=== PATIENT | male | born 1980 | race Caucasian/White ===

== ENCOUNTER 2023-03-07 14:53 | Emergency (ER) | payer OTHER ==
[2023-03-07 15:10] VITALS: PULSE 92; O2SAT 98
[2023-03-07] MEDS ORDERED: Zofran 4 MG/2 ML VIAL IV ONE (15:37)
[2023-03-07] MEDS ORDERED: SUBLIMAZE 100 MCG/2 ML IV ONE (15:38)
--- NOTE | 2023-03-07 15:44 | ERPHSYRPT ---
- History of Present Illness Source: patient Exam Limitations: no limitations Patient Subjective Stated Complaint: Pt was on the third step of a 5 foot ladder yesterday and fell off injuring his back and the back of his head Triage Nursing Assessment: Pt was brought to the ER by his girlfriend, hypertensive, rates pain in back as 03/03, pt has chronic back pain from an old injury and then hurt it again yesterday, no bruising or markings noted on back or head, pulses normal, skin n/w/d, doesn't appear to be in any distress Physician History: 42 yo WM fell backwards off a ladder yesterday hitting his head. Pt fell off of rung 3. He denies LOC but was dazed and has a headache/nausea/blurry vision. Pt also has mild C-spine pain and moderate lumbar pain. Occurred: yesterday Reason for Fall: lost balance Injuries/Pain Location: head, neck, back Loss of Consciousness: dazed Severity of Pain-Max: severe Severity of Pain-Current: moderate Modifying Factors: Improves With: movement Associated Symptoms (Fall): back pain Allergies/Adverse Reactions: No Known Drug Allergies Allergy (Verified 03/07/23 15:10) Home Medications: Allopurinol 100 mg [Zyloprim 100 mg] 100 mg PO DAILY 03/07/23 [History] Sertraline HCl [Zoloft] 200 mg PO DAILY 03/07/23 [History] Hx Tetanus, Diphtheria Vaccination/Date Given: No Hx Influenza Vaccination/Date Given: No Hx Pneumococcal Vaccination/Date Given: No Travel Risk - International Travel Have you traveled outside of the country in past 3 weeks: No - Coronavirus Screening Are you exhibiting any of the following symptoms?: No Close contact with a COVID-19 positive Pt in past 14-21 Days: No - Vaccine Status Have you recieved a Covid-19 vaccination: No - Review of Systems Constitutional: No Symptoms Eyes: No Symptoms Ears, Nose, & Throat: No Symptoms Respiratory: No Symptoms Cardiac: No Symptoms Abdominal/Gastrointestinal: No Symptoms Genitourinary Symptoms: No Symptoms Musculoskeletal: Back Pain, Neck Pain Skin: No Symptoms Neurological: No Symptoms, Headache Psychological: No Symptoms Endocrine: No Symptoms Hematologic/Lymphatic: No Symptoms Immunological/Allergic: No Symptoms - Past Medical History Pertinent Past Medical History: Yes Neurological History: No Pertinent History Cardiac History: No Pertinent History Respiratory History: No Pertinent History Endocrine Medical History: No Pertinent History Musculoskeletal History: No Pertinent History Other Medical History: gout - Past Surgical History Musculoskeletal: Orthopedic Surgery Other Surgical History: partial left knee replacement, left shoulder, right elbow - Social History Smoking Status: Never smoker Exposure to second hand smoke: No Drug Use: none Patient Lives Alone: Yes Significant Family History: no pertinent family hx - Nursing Vital Signs Nursing Vital Signs: Initial Vital Signs Temperature 96.2 F 03/07/23 14:58 Pulse Rate 92 H 03/07/23 14:58 Blood Pressure 160/95 03/07/23 14:58 O2 Sat by Pulse Oximetry 98 03/07/23 14:58 Pain Scale Pain Intensity 5 Hypertensive - [place] Coma Score Best Eye Response ([place]): (4) open spontaneously Best Verbal Response ([place]): (5) oriented Best Motor Response ([place]): (6) obeys commands [place] Total: 15 - Physical Exam General Appearance: no apparent distress Head Injury: tenderness (Occiput TTP) Eye Exam: PERRL/EOMI, eyes nml inspection ENT Exam: airway nml, No evidence of ENT injury, No clear fluid (ears), No clear fluid (nose) Neck Exam: supple, trachea midline, other (C-spine mildly TTP) Respiratory/Chest Exam: normal breath sounds, No chest tenderness, No respiratory distress Cardiovascular Exam: normal heart sounds, regular rate/rhythm, normal peripheral pulses, No murmur Gastrointestinal Exam: soft, normal bowel sounds, No tenderness Back Exam: vertebral tenderness (Mid-lower lumbar TTP), other (B posterior- superior iliac crests TTP) Extremity Exam: normal inspection, normal range of motion, capillary refill <3 sec, pelvis stable Peripheral Pulses: carotid (R): 2+, carotid (L): 2+ Neurologic Exam: alert, oriented x 3, cooperative, mechanical developer prover II-XII nml as tested, normal mood/affect, nml cerebellar function, nml station & gait, sensation nml Skin Exam: normal color, warm, dry SpO2 Interpretation: normal SpO2: 98 O2 Delivery: Room Air - Course Nursing assessment & vital signs reviewed: Yes - CT Exams Head CT Interpretation: Discussed w/radiologist (NAD) Cervical Spine CT Interpretation: Discussed w/radiologist (Spasm/nothing acute) Abdomen/Pelvis CT Interpretation: Discussed w/radiologist (Fecal stasis/otherwise neg) Ordered Tests: Active Orders 24 hr Category Date Time Status IV Insertion STAT Care 03/07/23 15:37 Completed ABDOMEN AND PELVIS W/0 CONTRAS [CT] Stat Exams 03/07/23 15:36 Completed CERVICAL SPINE WO CONTRAST [CT] Stat Exams 03/07/23 15:36 Completed HEAD WITHOUT CONTRAST [CT] Stat Exams 03/07/23 15:37 Completed Medication Summary Discontinued Medications Generic Name Dose Route Start Last Admin Trade Name Chris PRN Reason Stop Dose Admin Fentanyl Citrate 100 mcg 03/07/23 15:38 03/07/23 15:51 Fentanyl Citrate 100 Mcg/2 Ml* Vial IV 03/07/23 15:39 100 mcg STAT ONE Administration Fentanyl Citrate Confirm 03/07/23 15:49 Fentanyl Citrate 100 Mcg/2 Ml* Vial Administered 03/07/23 15:50 Dose 100 mcg .ROUTE .STK-MED ONE Hydromorphone HCl 1 mg 03/07/23 17:07 03/07/23 17:20 Hydromorphone 1 Mg/1ml Inj IV 03/07/23 17:08 1 mg STAT ONE Administration Hydromorphone HCl Confirm 03/07/23 17:19 Hydromorphone 1 Mg/1ml Inj Administered 03/07/23 17:20 Dose 1 mg .ROUTE .STK-MED ONE Ondansetron HCl 4 mg 03/07/23 15:37 03/07/23 15:51 Ondansetron Hcl 4 Mg/2 Ml Vial IV 03/07/23 15:38 4 mg STAT ONE Administration Ondansetron HCl Confirm 03/07/23 15:49 Ondansetron Hcl 4 Mg/2 Ml Vial Administered 03/07/23 15:50 Dose 4 mg .ROUTE .STK-MED ONE - Progress Progress: improved Progress Note: 03/07/23 18:26 Nursing note and vital signs reviewed No food or housing insecurities noted Additional history per SO All CT results reviewed and shared w pt/SO 100mcg IV Fentanyl/4mg IV Zofran w temporary relief of pain 1mg IV dilaudid before discharge after observation Counseled pt/family regarding: lab results, diagnosis, need for follow-up, rad results Medical Desision Making - Independent Historian Additional History obtained from: Relative/friend - Diagnostic Testing Radiological Interpretation: Reviewed by me - Risk of complications The pt has a mod risk of morbidity or mortality based on: Need for prescription drug management - Departure Departure Disposition: Home Clinical Impression: Minor closed head injury, Cervical strain, acute, Lumbar strain Condition: Stable Critical Care Time: No Referrals: [facility]OS[facility] [Primary Care Provider] - Follow up/PCP as directed Instructions: Low Back Pain (DC), Head Injury in Adults (DC), Cervical Muscle Strain (DC) Additional Instructions: Rest/Heat/Massage Pain meds as needed(Stool softener w pain meds) Norflex as needed Follow up with your family MD for continued pain Return to ER as needed Prescriptions: Hydrocodone/Acetaminophen [Hydrocodone-Acetamin 5-325 mg] 1 tab PO Q4HPRN PRN #7 tablet MDD 6 PRN Reason: Pain Orphenadrine Citrate 100 mg [Norflex 100 MG Tablet] 100 mg PO BID PRN #10 tab PRN Reason: Muscle Spasms
[2023-03-07] MEDS ORDERED: Zofran 4 MG/2 ML VIAL ONE (15:49)
[2023-03-07] MEDS ORDERED: SUBLIMAZE 100 MCG/2 ML ONE (15:49)
--- NOTE | 2023-03-07 16:41 | XRAY ---
Indication: Status post fall/trauma. Multiple contiguous axial images obtained through the head without contrast. Comparison: None Normal appearing brain parenchyma, ventricles, and bony calvarium. Incidental 3 cm left maxillary sinus polyp/retention cyst. Mastoid air cells are clear. Impression: Normal CT head without contrast exam. Incidental left maxillary sinus polyp/retention cyst.
--- NOTE | 2023-03-07 16:43 | XRAY ---
Indication: Status post fall/trauma. Multiple contiguous axial images obtained through the cervical spine. Sagittal and coronal reformatted images obtained. Comparison: None Axial images negative for acute fracture, suspicious bony lesions, or spinal canal stenosis. Mild C5-C7 degenerative endplate spurring and mild C7-T1 degenerative facet arthropathy. Sagittal and coronal reformatted images demonstrates lordotic reversal centered at C6, positional versus paraspinal spasm. C5-C7 disc space narrowing. No acute compression fracture, subluxation, or jumped facet. Normal appearing cranial cervical junction. Visualized noncontrasted soft tissues and lung apices are unremarkable. Impression: 1. Cervical lordotic reversal, positional versus paraspinal spasm. 2. Negative acute fracture/subluxation. 3. C5-T1 degenerative changes.
--- NOTE | 2023-03-07 16:47 | XRAY ---
Indication: Status post fall/trauma. Multiple contiguous axial images obtained through the abdomen and pelvis without contrast. Comparison: None Lung bases demonstrate minimal dependent atelectasis. Heart not enlarged. Stomach is markedly distended with food/fluid. Noncontrasted stomach and bowel loops appear nonobstructed. Moderate diffuse scattered colonic fecal debris throughout. No free fluid/air. Partially contracted gallbladder without gallstones. Remaining liver, pancreas, spleen, adrenal glands, kidneys, ureters, bladder, and aorta are unremarkable for noncontrast exam. Osseous structures intact. Incidental minimal levoscoliosis centered at L3, mild degenerative changes both hips, 1.1 cm/1.7 cm right iliac bone cysts, and 7 mm left femur neck bone cyst. Impression: 1. Moderate diffuse fecal stasis and chronic bony findings. 2. Remaining CT abdomen/pelvis without contrast exam is negative.
[2023-03-07] MEDS ORDERED: Hydromorphone 1 mg/ml Injection IV ONE (17:07)
[2023-03-07] MEDS ORDERED: Hydromorphone 1 mg/ml Injection ONE (17:19)
[2023-03-07 17:24] VITALS: BP 157/105
== END 2023-03-07 17:30 | disposition home or self-care (01) ==
LOC: ED 14:53
DX: S09.90XA Unspecified injury of head, initial encounter (principal); S16.1XXA Strain of muscle, fascia and tendon at neck level, initial encounter; S39.012A Strain of muscle, fascia and tendon of lower back, initial encounter; W11.XXXA Fall on and from ladder, initial encounter; R51.9 Headache, unspecified; Z79.891 Long term (current) use of opiate analgesic; Z79.899 Other long term (current) drug therapy; Z28.310 Unvaccinated for COVID-19
CPT/HCPCS: 36000; 70450; 72125; 74176; 96374; 96375; 99284; J1170; J2405; J3010

== ENCOUNTER 2023-03-17 17:24 | Emergency (ER) | payer OTHER ==
[2023-03-17 17:40] VITALS: BP 148/107; PULSE 88; O2SAT 98
[2023-03-17] MEDS ORDERED: TORAdol 30 mg Injection IM ONE (17:59)
[2023-03-17] MEDS ORDERED: NEURONTIN PO ONE (18:01)
[2023-03-17] MEDS ORDERED: VISTARIL 100MG/2ML IM STA (18:02)
[2023-03-17] MEDS ORDERED: TORAdol 30 mg Injection ONE (18:05)
[2023-03-17] MEDS ORDERED: VISTARIL 100MG/2ML IM ONE (18:05)
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
== END 2023-03-17 18:25 | disposition home or self-care (01) ==
LOC: ED 17:24
DX: M75.81 Other shoulder lesions, right shoulder (principal); M50.10 Cervical disc disorder with radiculopathy, unspecified cervical region; M79.601 Pain in right arm; Z79.899 Other long term (current) drug therapy; Z28.310 Unvaccinated for COVID-19
CPT/HCPCS: 96372; 99283; J1885; J3410; A9270-GY

== ENCOUNTER 2023-07-15 09:57 | Emergency (ER) | payer OTHER ==
--- NOTE | 2023-07-15 10:24 | ERPHSYRPT ---
- History of Present Illness Time Seen by Provider: 07/15/23 10:10 Source: patient Exam Limitations: no limitations Physician History: Patient had carpel and cubital tunnel release on 07/10. He has concerns about his wounds possibly being infected. No fevers, chills or drainage from the wounds. Right ear complaints of bleeding and hearing voices for the past several months. Timing/Duration: week(s) Location: extremities (RUE) Possible Causes: other (recent surgery) Associated Symptoms: denies symptoms Allergies/Adverse Reactions: No Known Drug Allergies Allergy (Verified 07/15/23 09:59) Home Medications: Allopurinol 100 mg [Zyloprim 100 mg] 100 mg PO DAILY 03/07/23 [History] Gabapentin [Neurontin ] 300 mg PO TID 07/15/23 [History] Hydrocodone/Acetaminophen [Hydrocodone-Acetamin 5-325 mg] 1 tab PO TID PRN 07/15/23 [History] Hx Tetanus, Diphtheria Vaccination/Date Given: No Hx Influenza Vaccination/Date Given: No Hx Pneumococcal Vaccination/Date Given: No Travel Risk - Vaccine Status Have you recieved a Covid-19 vaccination: No - Review of Systems All Other Systems: Reviewed and Negative (Per HPI) - Past Medical History Pertinent Past Medical History: Yes Neurological History: No Pertinent History Cardiac History: No Pertinent History Respiratory History: No Pertinent History Endocrine Medical History: No Pertinent History Musculoskeletal History: No Pertinent History Other Medical History: gout,CHRONIC RIGHT ARM PAIN - Past Surgical History Past Surgical History: Yes Musculoskeletal: Orthopedic Surgery Other Surgical History: partial left knee replacement, left shoulder, right elbow - Social History Smoking Status: Never smoker Exposure to second hand smoke: No Drug Use: none Patient Lives Alone: Yes Significant Family History: no pertinent family hx - Physical Exam General Appearance: no apparent distress Ears, Nose, Throat Exam: normal ENT inspection, TMs normal, dry mucous membranes, other (right external canal with small abrasion with dried blood) Skin Exam: other (incisions at right wrist and elbow show no signs of erythema, drainage or warmth) - Progress Progress Note: No signs of infected post surgical wounds. Continue to dress wounds as prescribed. Right external ear canal trauma likely from Q tips. TM wnl. Advised to d/c use of Q tips. No evidence of otitis externa. Auditory hallucinations, persecutory in nature. Patient refuses telepsych consult at this time. After discussing telepsych evaluation patient left AMA. Medical Desision Making - Diagnostic Testing Diagnostic test were ordered, analyzed, and reviewed by me: No - Risk of complications Low Risk: Low risk of morbidity from additional dx testing or treatment - Departure Departure Disposition: AMA Clinical Impression: Visit for wound check, Trauma of ear canal, Auditory hallucinations Condition: Good Critical Care Time: No Referrals: [facility]OS[facility] [Primary Care Provider] - Follow up/PCP as directed Instructions: Wound Care (DC)
[2023-07-15 10:29] VITALS: BP 125/84; PULSE 78; RESP 17; O2SAT 98
== END 2023-07-15 10:22 | disposition left against medical advice (07) ==
LOC: ED 09:57
DX: Z48.01 Encounter for change or removal of surgical wound dressing (principal); S00.411A Abrasion of right ear, initial encounter; R44.0 Auditory hallucinations; Z79.891 Long term (current) use of opiate analgesic; Z79.899 Other long term (current) drug therapy; Z28.310 Unvaccinated for COVID-19
CPT/HCPCS: 99281

== ENCOUNTER 2024-05-21 14:47 | Day surgery (SDC) | payer OTHER ==
[2024-05-21] MEDS ORDERED: Decadron 4 MG INJ IV ONE (14:48)
[2024-05-21] MEDS ORDERED: Sodium Chloride 0.9(Preservative Free) 10 ML IJ ONE (14:48)
[2024-05-21] MEDS ORDERED: Lactated Ringers 1,000 ML IV ONE (15:45)
[2024-05-21] MEDS ORDERED: DIPRIVAN 200 MG/20 ML IV ONE (16:02)
[2024-05-21] MEDS ORDERED: MORPHINE SULFATE 2 MG INJ ONE ×2 (16:14→16:29)
--- NOTE | 2024-05-21 17:12 | XRAY ---
Indication: Right L3-L5 transforaminal JUSTIN. Intraoperative fluoroscopy provided for 31 seconds. 7 digital spot images submitted for interpretation demonstrates posterior needle tips projecting over the expected right L3 and L4 nerve roots. Small amount of contrast injected for needle tip placement. Correlate with intraoperative findings/report.
--- NOTE | 2024-05-21 17:14 | XRAY ---
31 seconds of fluoroscopy was used in surgery for a right L3-L5 transforaminal JUSTIN.
== END 2024-05-21 16:54 | disposition home or self-care (01) ==
LOC: SDC-PAIN 14:47
PROVIDERS: ATTEND Psychiatry & Neurology Pain Medicine
DX: M54.16 Radiculopathy, lumbar region (principal)
CPT/HCPCS: 64483; 64484; 72100; 77003; J1100; J2270; J2704; Q9966

== ENCOUNTER 2024-07-02 10:27 | Day surgery (SDC) | payer OTHER ==
[2024-07-02] MEDS ORDERED: Depo-Medrol 40 MG/ML IM ONE (10:28)
[2024-07-02] MEDS ORDERED: BUPIVACAINE 0.5% VIAL IJ ONE (10:28)
[2024-07-02] MEDS ORDERED: DIPRIVAN 200 MG/20 ML IV ONE (11:59)
[2024-07-02] MEDS ORDERED: Lactated Ringers 1,000 ML IV ONE (12:48)
--- NOTE | 2024-07-02 15:02 | XRAY ---
Indication: Right hip injection. Intraoperative fluoroscopy provided for 14 seconds. Single digital spot image submitted for interpretation demonstrates needle tip projecting lateral to right femur neck. Small amount of contrast injected for needle tip placement. Correlate with intraoperative findings/report.
--- NOTE | 2024-07-02 16:56 | XRAY ---
14 seconds of fluoroscopy was used in surgery for a right intra-articular hip injection.
== END 2024-07-02 12:30 | disposition home or self-care (01) ==
LOC: SDC-PAIN 10:27
PROVIDERS: ATTEND Psychiatry & Neurology Pain Medicine
DX: M16.11 Unilateral primary osteoarthritis, right hip (principal)
CPT/HCPCS: 20610; 73501; 77002; J2704; Q9966

== ENCOUNTER 2024-10-16 12:50 | Day surgery (SDC) | payer OTHER ==
[2024-10-16] MEDS ORDERED: dexAMETHasone sodium phosphate IJ ONE (12:51)
[2024-10-16] MEDS ORDERED: Sodium Chloride 0.9(Preservative Free) 10 ML IJ ONE (12:51)
[2024-10-16] MEDS ORDERED: propofoL IV ONE (14:00)
--- NOTE | 2024-10-16 16:32 | XRAY ---
Indication: Right L3-L5 transforaminal JUSTIN. Intraoperative fluoroscopy provided for 23 seconds. 6 digital spot image submitted for interpretation demonstrates posterior needle tips projecting over expected right L3 and L4 nerve roots. Small amount of contrast injected for needle tip placement. Correlate with intraoperative findings/report.
--- NOTE | 2024-10-17 09:22 | XRAY ---
23 seconds of fluoroscopy was used in surgery for a right L3-L5 transforaminal JUSTIN.
== END 2024-10-16 14:29 | disposition home or self-care (01) ==
LOC: SDC-PAIN 12:50
PROVIDERS: ATTEND Psychiatry & Neurology Pain Medicine
DX: M54.16 Radiculopathy, lumbar region (principal)
CPT/HCPCS: 64483; 64484; 72100; 77003; J1100; J2704; Q9966